=== PATIENT | male | born 1940 | race African-American/Black ===

== ENCOUNTER 2016-10-19 21:42 | Emergency (ER) | payer OTHER ==
[~2016-10-19] VITALS: Ht 190.5 cm; Wt 110.0 kg
[2016-10-19 22:58] LABS: BASOPHILS % 0.6 % (0.0-2.0); EOSINOPHILS % 2.6 % (0.0-5.0); HEMOGLOBIN. 11.3 g/dL (14.0-18.0); MEAN CORPUSCULAR HEMOGLOBIN 29.5 pg (28.0-32.0); MEAN CORPUSCULAR HGB CONC 33.3 g/dL (31.0-37.0); MEAN CORPUSCULAR VOLUME 88.6 fL (80.0-94.0); MEAN PLATELET VOLUME 7.4 fl (7.4-10.4); MONOCYTES % 10.7 % (2.0-8.0); NEUTROPHILS % 70.1 % (40.0-76.0); PLATELET 226 x1000/uL (130-400); RED BLOOD CELL COUNT 3.84 mill/uL (4.7-6.1); RED CELL DISTRIBUTION WIDTH 15.3 % (11.6-14.6); WHITE BLOOD COUNT 7.1 x1000/uL (4.5-11.0)
[2016-10-19 23:15] LABS: ALBUMIN 3.5 g/dL (3.4-5.0); ANION GAP 15; CALCIUM 9.1 mg/dL (8.5-10.1); CARBON DIOXIDE 30 mEq/L (21-32); CHLORIDE 98 mEq/L (98-107); INDEX HEMOLYSI 1 (1-3); INDEX ICTERIC 1 (1-4); INDEX LIPEMIC 2 (1-3); TROPONIN I < 0.02 ng/mL (0.00-0.04); UREA NITROGEN BLOOD 21 mg/dL (7-21); eGFR 9 mL/min (>60)
[2016-10-19 23:19] LABS: ALANINE AMINOTRANSFERASE 18 IU/L (13-61)
[2016-10-20 00:02] VITALS: BP 115/77
== END 2016-10-20 00:20 | disposition home or self-care (01) ==
LOC: ER 21:42
DX: G90.8 Other disorders of autonomic nervous system (principal); I12.0 Hypertensive chronic kidney disease with stage 5 chronic kidney disease or end stage renal disease; E11.22 Type 2 diabetes mellitus with diabetic chronic kidney disease; N18.6 End stage renal disease; Z99.2 Dependence on renal dialysis
CPT/HCPCS: 36415; 71010; 80053; 84484; 85025; 93005; 99285